=== PATIENT | female | born 1995 | race Hispanic/Latino ===

== ENCOUNTER 2020-01-05 04:04 | Emergency (ER) | payer SELFPAY ==
[2020-01-05 04:53] LABS: Pregnancy Test - Urine (BHCG) Negative (Negative); Pregu Control Background? CLEAR/WHITE (CLR/WHITE); Pregu Control Bar Appear? YES (CONTROL BAR); Specific Gravity 1.028 (1.002-1.036)
[2020-01-05] MEDS ORDERED: Ibuprofen 200 MG TAB ONE (05:00)
== END 2020-01-05 06:01 | disposition home or self-care (01) ==
LOC: ERS 04:04
DX: H66.93 Otitis media, unspecified, bilateral (principal); F32.9 Major depressive disorder, single episode, unspecified
CPT/HCPCS: 81025; 87081; 87430; 87804; 99283

== ENCOUNTER 2020-10-09 08:42 | Outpatient (CLI) | payer OTHER ==
--- NOTE | 2020-10-09 11:52 | ULT ---
OBSTETRICAL ULTRASOUND: INDICATION: Evaluate anatomy and cervix. FINDINGS: There is a single live intrauterine gestation in vertex presentation. The placenta is a single live intrauterine gestation in vertex presentation. The placenta is anterior in location without evidence of previa. The cervical length was 3 cm. There is no evidence of funneling. MELANI was 12.7 cm. Car diac activity was 139 b.p.m. Biparietal diameter measures 4.47 cm giving an estimated gestational age of 19 weeks and 4 days. Hea d circumference was 16.45 cm giving an estimated gestational age of 19 weeks and 2 days. The abdominal circumference measured 13.59 cm giving an estimated gestational age of 19 weeks and 1 d ay. Femoral length was 2.97 cm giving an estimated gestational age of 19 weeks and 2 days. The average gestational age by ultrasound is 19 weeks and 3 days. Estimated due date is 03/02/2021. The clinical age is 20 weeks 2 days with estimated due date of 02/24/2021. Estimated weight is 275 gm +/- 40 gm (0 pounds 10 ounces +/-1 ounces)(5th percentile). Visualized aspects of the head, heart, stomach, 3-vessel cord, cord insertion, bladder, and orb it appear within normal limits. The spine, kidneys, and nose and lips were not well seen. IMPRESSION: 1. Single live intrauterine gestation with size and dates as above. 2. Cervix measures 3 cm in length without evidence of funneling. 3. Small for gestational age. 4. Limitations to the survey due to small size of the fetus. Would recommend a followup exami nation in 1-2 weeks for completion of the survey and evaluate growth. POS: [facility]
== END 2020-10-09 08:43 | disposition home or self-care (01) ==
LOC: BICULT 08:42
PROVIDERS: ATTEND Family Medicine
DX: Z34.02 Encounter for supervision of normal first pregnancy, second trimester (principal)
CPT/HCPCS: 76805

== ENCOUNTER 2023-06-14 19:19 | Emergency (ER) | payer OTHER, SELFPAY ==
[2023-06-14] MEDS ORDERED: cefTRIAXone (ROCEPHIN) 500 MG VIAL ONE (21:01)
[2023-06-14] MEDS ORDERED: Azithromycin 250 MG TAB ONE (21:01)
[2023-06-14] MEDS ORDERED: Lidocaine 1% MPF 2 ML VIAL ONE (21:02)
== END 2023-06-14 21:25 | disposition home or self-care (01) ==
LOC: ERS 19:19
DX: O98.811 Other maternal infectious and parasitic diseases complicating pregnancy, first trimester (principal); Z3A.01 Less than 8 weeks gestation of pregnancy
CPT/HCPCS: 36415; 84702; 96372; 99283; J0696